=== PATIENT | female | born 1950 | race Caucasian/White ===

== ENCOUNTER → 2018-02-13 | Outpatient (CLI) | payer MEDICARE, OTHER ==
[~2018-02-13] MED LIST: ALBU2.5V5 NEB; ALPR0.25 PO; ALPR0.257 PO; AMLO10TA6 PO; ATOR40TA59 PO; DIPH25CA58 PO; GABA600T2 PO; HYDR-2766 PO; LEVO50TA5 PO; MELA1TAB SL; MULT1CAP15 PO; NAPR-514 PO; OXYB5TAB7 PO; PANT40TA5 PO; POTA500T5 PO; RANI150C PO; TRIA1CAP3 PO; VIT1TABL46 PO; WARF-31 PO
--- NOTE | 2018-02-13 15:37 | KCIC ---
MR of the right ankle and foot Indication: Distal fibular fracture. Ankle and mid foot pain after a fall.. Technique: Standard multiplanar sequences are obtained. ANKLE: Lateral: Peroneal tendons: Intact, no dislocation Lateral collateral ligaments: * Anterior talofibular ligament: Poorly defined. Irregular. * Calcaneofibular ligament: Poorly defined and irregular. * Posterior talofibular ligament: Poorly defined and irregular. Tibiofibular syndesmosis: Anterior inferior tibiofibular ligament is intact. Tibiofibular syndesmosis is intact. Medial: Posterior tibial tendon: Intact Flexor digitorum longus tendon: Intact Flexor hallucis longus tendon: Intact Medial ligaments: No acute tear, chronic scarring. Anterior: Anterior tibial tendon: Intact Extensor hallucis longus tendon: Intact Extensor digitorum longus tendon: Intact Posterior: Achilles tendon: Intact Plantar aponeurosis: Mild thickening with intermediate signal at the calcaneal attachment. Subtalar joints: Patent Tarsal sinus: Diffusely abnormal signal compatible with scarring/chronic synovitis. Talar Dome: Intact Bones: Minimal marrow edema at the distal talus. No acute fracture. No aggressive bone destruction. Fluid: Capsular swelling/distention at the dorsal talonavicular joint. There is some fluid accumulation superficial to the capsule. Joints: Primary osteoarthritis with diffuse marginal osteophytes. There is medial and plantar flexion of the talus. Loss of the longitudinal arch of the foot. There is heel valgus. Soft tissues: Unremarkable FOOT: Mild soft tissue edema. An organized fluid collection. No bone destruction or acute fracture. Lisfranc ligament complex is intact as is tarsometatarsal alignment. Mild degenerative changes are noted. Visualized tendons are intact. IMPRESSION: 1. Plantar fasciitis. 2. Pes planovalgus. Tarsal sinus demonstrates chronic scarring or chronic synovitis, as can be seen with chronic instability or symptoms of tarsal sinus syndrome. 3. Mild swelling or distention of the talonavicular joint. Some fluid signal along the dorsal talonavicular joint may represent joint effusion or ganglion cyst. 4. Lateral collateral ankle ligament and medial deltoid ligament scarring Electronically signed by: Medhat Gallo MD (02/13/2018 3:33 PM) [id number]
== END | disposition home or self-care (01) ==
LOC: KCIC MRI 11:48 → MERGE 13:15
PROVIDERS: ATTEND Nurse Practitioner Family
DX: S93.421A Sprain of deltoid ligament of right ankle, initial encounter (principal); M19.071 Primary osteoarthritis, right ankle and foot; M72.2 Plantar fascial fibromatosis; M25.771 Osteophyte, right ankle; I10 Essential (primary) hypertension; Z72.0 Tobacco use; Z90.710 Acquired absence of both cervix and uterus; Z88.0 Allergy status to penicillin; X58.XXXA Exposure to other specified factors, initial encounter; Y93.89 Activity, other specified; Y92.89 Other specified places as the place of occurrence of the external cause; Y99.8 Other external cause status
CPT/HCPCS: 73718; 73721

== ENCOUNTER → 2020-10-05 | Outpatient (CLI) | payer MEDICARE, OTHER ==
[~2020-10-05] MED LIST changes: +AMLO-187 PO; -AMLO10TA6 PO; -GABA600T2 PO; +GABA600T7 PO; -HYDR-2766 PO; +HYDR-2769 PO; +OXYB5TAB10 PO; -OXYB5TAB7 PO; -PANT40TA5 PO; +PANT40TA77 PO
[2020-10-05 09:13] LABS: BILIRUBIN,URINE NEGATIVE (NEG); CLARITY,URINE CLOUDY; COLOR,URINE YELLOW; NITRITE,URINE NEGATIVE (NEG); PROTEIN,URINE NEGATIVE (NEG-TRACE); UROBILINOGEN,URINE 0.2 mg/dL (0.2 mg/dL)
[2020-10-05 09:13] LABS: BASO # 0.1 x10^3/uL (0.0-0.2); BASO % 1 % (0-3); EOS # 0.3 x10^3/uL (0.0-0.7); EOS % 4 % (0-3); HEMATOCRIT 35.7 % (36.0-47.0); HEMOGLOBIN 11.7 g/dL (12.0-15.5); LYMPH # 1.5 x10^3/uL (1.0-4.8); LYMPH % 19 % (24-48); MEAN CORPUSCULAR HEMOGLOBIN 30 pg (25-35); MEAN CORPUSCULAR HGB CONC 33 g/dL (31-37); MEAN CORPUSCULAR VOLUME 93 fL (79-100); MONO # 0.6 x10^3/uL (0.0-1.1); MONO % 8 % (0-9); NEUT % 68 % (31-73); PLATELET COUNT 324 x10^3/uL (140-400); RED BLOOD COUNT 3.85 x10^6/uL (3.50-5.40); RED CELL DISTRIBUTION WIDTH 13.2 % (11.5-14.5); WHITE BLOOD COUNT 7.5 x10^3/uL (4.0-11.0)
[2020-10-05 09:21] LABS: PROTHROMBIN TIME PATIENT 13.1 SEC (11.7-14.0)
[2020-10-05 09:29] LABS: ALBUMIN 4.2 g/dL (3.4-5.0); CALCIUM 9.2 mg/dL (8.5-10.1); CREATININE 1.3 mg/dL (0.6-1.0); GFR 40.5; POTASSIUM 3.9 mmol/L (3.5-5.1)
[2020-10-05 09:32] LABS: BACTERIA,URINE FEW /HPF (0-FEW); WBC,URINE TNTC /HPF (0-4)
[2020-10-06 01:12] LABS: HEMOGLOBIN A1C 5.7 % (4.8-5.6)
== END ==
LOC: SURGPAT 12:27
PROVIDERS: ATTEND Orthopaedic Surgery
DX: Z01.818 Encounter for other preprocedural examination (principal); M17.12 Unilateral primary osteoarthritis, left knee
CPT/HCPCS: 36415; 80048; 81001; 82040; 82306; 83036; 85025; 85610; 87077; 87086; 87186; 87641

== ENCOUNTER → 2020-11-17 | Outpatient (CLI) | payer MEDICARE, OTHER ==
[2020-10-21 12:35] VITALS: BP 111/53
[~2020-11-17] MED LIST changes: +ACET500T68 PO; +CALC-31 PO; +FLUT16SP NS; +FURO20TA3 PO; +VORT5TAB PO
--- NOTE | 2020-11-17 16:02 | RAD ---
US DPLX VENOUS EXTREMITY LOWER LT History: Reason: CALF PAIN / Spl. Instructions: / History: Comparison: None. Discussion: Multiple longitudinal and transverse high resolution real-time images of the venous system of left lo wer extremity were obtained with color and Doppler sampling. The common femoral, superficial femoral, popliteal and proximal calf veins are all patent and demonstrate normal flow and compressibility. No rmal respiratory phasicity and augmentation is present. Impression: 1. No evidence of deep vein thrombosis. Electronically signed by: Mike Ortega DO (11/17/2020 4:00 PM) [id number]
== END ==
LOC: US 15:05
PROVIDERS: ATTEND Orthopaedic Surgery
DX: M79.662 Pain in left lower leg (principal)
CPT/HCPCS: 93971

== ENCOUNTER → 2021-01-13 | Outpatient (CLI) | payer MEDICARE, OTHER ==
[2020-10-21 12:35] VITALS: BP 111/53
== END ==
LOC: PMGORTHO 14:30
PROVIDERS: ATTEND Orthopaedic Surgery
DX: T14.8XXA Other injury of unspecified body region, initial encounter (principal); X58.XXXA Exposure to other specified factors, initial encounter; Y93.89 Activity, other specified; Y92.89 Other specified places as the place of occurrence of the external cause; Y99.8 Other external cause status
CPT/HCPCS: 36415; 87071; 87075; 89050; 89060

== ENCOUNTER → 2021-10-07 | Outpatient (CLI) | payer MEDICARE, OTHER ==
[2020-10-21 12:35] VITALS: BP 111/53
[2021-10-07 14:44] LABS: BASO % 1 % (0-3); EOS # 0.2 x10^3/uL (0.0-0.7); EOS % 3 % (0-3); HEMATOCRIT 31.8 % (36.0-47.0); HEMOGLOBIN 10.1 g/dL (12.0-15.5); LYMPH # 1.5 x10^3/uL (1.0-4.8); LYMPH % 21 % (24-48); MEAN CORPUSCULAR HEMOGLOBIN 28 pg (25-35); MEAN CORPUSCULAR HGB CONC 32 g/dL (31-37); MEAN CORPUSCULAR VOLUME 86 fL (79-100); MONO # 0.4 x10^3/uL (0.0-1.1); MONO % 6 % (0-9); NEUT % 70 % (31-73); PLATELET COUNT 454 x10^3/uL (140-400); RED BLOOD COUNT 3.69 x10^6/uL (3.50-5.40); WHITE BLOOD COUNT 7.2 x10^3/uL (4.0-11.0)
== END ==
LOC: LAB 13:55
PROVIDERS: ATTEND Orthopaedic Surgery
DX: Z96.652 Presence of left artificial knee joint (principal)
CPT/HCPCS: 36415; 85025; 85651; 86141